=== PATIENT | female | born 2000 | race Caucasian/White ===

== ENCOUNTER 2018-07-27 06:24 | Day surgery (SDC) | payer OTHER ==
[2018-07-27] MEDS ORDERED: ONDANSETRON HCL INJ/PF 4 MG/2 ML SDV ONE (07:10)
[2018-07-27] MEDS ORDERED: MIDAZOLAM 2 MG/2 ML INJ ONE (07:11)
[2018-07-27] MEDS ORDERED: FENTANYL CITRATE INJ/PF 100 MCG/2 ML AMPUL ONE (07:11)
[2018-07-27] MEDS ORDERED: HYDROMORPHONE HCL INJ/PF 2 MG/ML AMPULE ONE (07:11)
[2018-07-27] MEDS ORDERED: DEXAMETHASONE SOD PHOS INJ 10 MG/1 ML VIAL ONE (07:11)
[2018-07-27] MEDS ORDERED: PROPOFOL INJ 200 MG/20 ML VIAL IV ONE (07:11)
[2018-07-27] MEDS ORDERED: SUCCINYLCHOLINE CHLORIDE INJ 200 MG/10 ML VIAL ONE (07:12)
[2018-07-27] MEDS: BUPIVACAINE HCL 0.5%/EPI 1:200000 INJ 1.8 ML CARTRIDGE ONE ×2 (08:14)
[2018-07-27 09:02] LABS: HEMATOCRIT 38.2 % (36.0-47.0); HEMOGLOBIN 12.8 g/dL (12.0-15.5); MEAN CORPUSCULAR HEMOGLOBIN 28.3 pg (27.0-33.4); MEAN CORPUSCULAR HGB CONC 33.5 g/dL (32.0-36.0); MEAN CORPUSCULAR VOLUME 84 fl (80-97); PLATELET COUNT 148 10^3/uL (150-450); RED BLOOD COUNT 4.53 10^6/uL (3.72-5.28); RED CELL DISTRIBUTION WIDTH 19.7 % (11.5-14.0)
--- NOTE | 2018-07-28 12:41 | [facility] OPERATIVE REPORT E ---
[facility] NAME: ARY CARTAGENA AGE: 17Y DATE OF SURGERY: 07/27/2018 ROOM: PREOPERATIVE DIAGNOSIS: 1. ADENOTONSILLAR HYPERTROPHY. 2. ACUTE RECURRENT TONSILLITIS. 3. UPPER AIRWAY RESISTANCE SYNDROME. POSTOPERATIVE DIAGNOSIS: 1. ADENOTONSILLAR HYPERTROPHY. 2. ACUTE RECURRENT TONSILLITIS. 3. UPPER AIRWAY RESISTANCE SYNDROME. OPERATION: 1. Bilateral tonsillectomy, patient age greater than 12. 2. Adenoidectomy. SURGEON: DEANNA WATTS D.O. ANESTHESIA: General endotracheal tube. ANESTHESIA STAFF: RIP Stafford ESTIMATED BLOOD LOSS: 15 mL. FLUIDS: 1000 mL. COMPLICATIONS: None. DRAINS: None. SPONGE COUNT: Verified. MATERIALS FORWARDED SPECIMEN: Left and right tonsillar tissue. FINDINGS: 1. The tonsils are noted to be 2 to 3+ in size, and were cryptic in nature. 2. Adenoid hypertrophy was 2 to 3+ with mild janee compression. 3. The soft palatal tissues were redundant in nature and the uvula was unremarkable in appearance. INDICATIONS: This is a 17-year-old white female patient who was seen and evaluated in the [facility]. The patient had been referred for, and she complained of, a history of acute recurrent tonsillitis episodes occurring each year and requiring antibiotic treatment. These episodes have occurred each year over the years. With the episodes the patient experiences significant sore throat discomfort, difficult p.o. intake, and misses days of school or work. The patient also has a clinical history of findings consistent with adenotonsillar hypertrophy. The patient also reports a history of symptoms consistent with upper airway resistance syndrome/sleep disordered breathing. She denies a history of apnea events. After extensive discussion with the patient, recommendation and plan was made to proceed with tonsil and adenoid surgery. These procedures and all of their risks and complications were all discussed in detail with the patient. She voiced an understanding of the described surgical plan, agreed to proceed, and consent was obtained. PROCEDURE: The patient was taken to the main operating room and placed on the operating room table in the supine position. Appropriate monitors were placed. Using mask and IV access, general anesthesia was induced. The patient was next transorally intubated without difficulty. The patient was rotated 90 degrees and positioned for tonsil surgery. The patient's lips, teeth, tongue and inside of the mouth were inspected and noted to be without defects. There was a mouth gag inserted. It was opened, and the patient was placed into suspension. At this point the adenoid microdebrider system at a setting of 1500 RPM was used to debulk the adenoid tissue. Next, with the use of adenoid packed and suction electrocautery, adequate hemostasis was achieved. There was a soft catheter placed through the patient's nose that was used to suspend the soft palate. Findings are as noted above. At this point, the plasma J-hook device was used to dissect and remove tonsillar tissue on each side. This device was also used to provide adequate hemostasis. Saline irritation was performed and suctioned. There was adequate hemostasis noted. The soft catheter was next released and removed from the patient's nose. The mouth gag was removed from the patient's mouth without difficulty. There was no damage to the lips, teeth, tongue, gums, or inside of the mouth. The patient was then returned to the anesthesia staff and was allowed to emerge from general anesthesia. The patient was extubated in the main operating room and was then transported to the post-anesthesia recovery unit in stable condition. There were no complications. DICTATING PHYSICIAN: DEANNA WATTS D.O. [id number] PHY#: [id number] ID: [id number] JOB#: [id number] ACCT: [id number] cc:DEANNA WATTS D.O. > MTDD
== END 2018-07-27 10:03 | disposition home or self-care (01) ==
LOC: SC 06:24
PROVIDERS: ATTEND Otolaryngology
DX: J35.3 Hypertrophy of tonsils with hypertrophy of adenoids (principal); G47.8 Other sleep disorders; D64.9 Anemia, unspecified; H69.83 Other specified disorders of Eustachian tube, bilateral; H74.03 Tympanosclerosis, bilateral; F98.8 Other specified behavioral and emotional disorders with onset usually occurring in childhood and adolescence; F32.9 Major depressive disorder, single episode, unspecified; H91.90 Unspecified hearing loss, unspecified ear; Z79.899 Other long term (current) drug therapy
CPT/HCPCS: 170; 36415; 82785; 85027; 86003; 88304; J0330; J1100; J1170; J2250; J2405; J2704; J3010; J3490

== ENCOUNTER → 2018-09-15 | Outpatient (CLI) | payer OTHER ==
[2018-09-19 00:36] LABS: F095-IGE PEACH 1.71 kU/L (Class III); F259-IGE GRAPE 0.21 kU/L (Class 0/I)
[2018-09-19 18:29] LABS: F092-IGE BANANA 1.13 kU/L (Class II)
[2018-09-19 18:30] LABS: F013-IGE PEANUT 1.48 kU/L (Class III)
== END ==
LOC: OD 14:20
PROVIDERS: ATTEND Otolaryngology
DX: J03.91 Acute recurrent tonsillitis, unspecified (principal)
CPT/HCPCS: 36415; 86003